=== PATIENT | male | born 1985 | race Caucasian/White ===

== ENCOUNTER 2023-09-12 14:04 | Emergency (ER) | payer OTHER ==
[2023-09-12 14:20] VITALS: BP 106/64; PULSE 77; RESP 18; TEMP 97.8; BMI 27.2
[2023-09-12] MEDS ORDERED: KETOROLAC TROMETHAMINE 30 MG/1 ML VIAL ONE (15:37)
[2023-09-12] MEDS ORDERED: ACETAMINOPHEN 500 MG TABLET (FP) ONE (15:37)
[2023-09-12] MEDS: ACETAMINOPHEN 500 MG TABLET (FP) PO ONE (15:45)
[2023-09-12] MEDS: KETOROLAC TROMETHAMINE 30 MG/1 ML VIAL IM ONE (15:45)
== END 2023-09-12 16:43 | disposition home or self-care (01) ==
LOC: JERFT 14:04
PROC: 3E0233Z Introduction of Anti-inflammatory into Muscle, Percutaneous Approach (ICD-10-PCS; principal; 2023-09-12)
DX: M54.2 Cervicalgia (principal); M25.511 Pain in right shoulder; M54.50 Low back pain, unspecified; V43.52XA Car driver injured in collision with other type car in traffic accident, initial encounter; Y92.410 Unspecified street and highway as the place of occurrence of the external cause
CPT/HCPCS: 72100-TC-FY; 73030-TC-RT-FY; 99284-25